=== PATIENT | female | born 1945 | race Caucasian/White ===

== ENCOUNTER 2017-07-24 10:42 | Outpatient (CLI) | payer MEDICARE, BC | END 2017-07-24 10:43 | disposition home or self-care (01) | LOC: BICMAMMO 10:42 | PROVIDERS: ATTEND Family Medicine | DX: Z12.31 Encounter for screening mammogram for malignant neoplasm of breast (principal) | CPT/HCPCS: 77063; 77067 ==

== ENCOUNTER 2018-07-30 12:21 | Outpatient (CLI) | payer MEDICARE, BC ==
--- NOTE | 2018-07-30 12:54 | MMO ---
Bilateral MAMMO Bilat Screen [facility]. CLINICAL HISTORY: Patient is 73 years old and is seen for screening. The patient has no family history of breast cancer. The patient has no personal history of cancer. The patient has a history of left Excisional Biopsy - benign. VIEWS: The views performed were: bilateral craniocaudal with tomosynthesis and bilateral mediolateral oblique with tomosynthesis. FILMS COMPARED: The present examination has been compared to prior imaging studies performed at [facility] on 07/24/2017, and at [facility] on 05/04/2014, 05/13/2015 and 05/22/2016. MAMMOGRAM FINDINGS: There are scattered fibroglandular densities. There are stable benign appearing calcifications seen in both breasts. There are also vascular calcifications. There are no suspicious masses, suspicious calcifications, or new areas of architectural distortion. IMPRESSION: THERE IS NO MAMMOGRAPHIC EVIDENCE OF MALIGNANCY. A ROUTINE FOLLOW-UP MAMMOGRAM IN 1 YEAR IS RECOMMENDED. THE RESULTS OF THIS EXAM WERE SENT TO THE PATIENT. ACR BI-RADS Category 2 - Benign finding MAMMOGRAPHY NOTE: 1. A negative mammogram report should not delay a biopsy if a dominant of clinically suspicious mass is present. 2. Approximately 10% to 15% of breast cancers are not detected by mammography. 3. Adenosis and dense breasts may obscure an underlying neoplasm.
== END 2018-07-30 12:22 | disposition home or self-care (01) ==
LOC: BICMAMMO 12:21
PROVIDERS: ATTEND Family Medicine
DX: Z12.31 Encounter for screening mammogram for malignant neoplasm of breast (principal); Z91.89 Other specified personal risk factors, not elsewhere classified
CPT/HCPCS: 77063; 77067

== ENCOUNTER 2019-08-26 08:14 | Outpatient (CLI) | payer MEDICARE, BC ==
--- NOTE | 2019-08-26 08:42 | MMO ---
Bilateral MAMMO Bilat Screen [facility]. CLINICAL HISTORY: Patient is 74 years old and is seen for screening. The patient has no family history of breast cancer. The patient has no personal history of cancer. The patient has a history of left Excisional Biopsy - benign. VIEWS: The views performed were: bilateral craniocaudal with tomosynthesis and bilateral mediolateral oblique with tomosynthesis. FILMS COMPARED: The present examination has been compared to prior imaging studies performed at [facility] on 07/24/2017 and 07/30/2018, and at [facility] on 05/22/2016. This study has been interpreted with the assistance of computer-aided detection. MAMMOGRAM FINDINGS: There are scattered fibroglandular densities. Benign calcifications are noted bilaterally. There are no suspicious masses, suspicious calcifications, or new areas of architectural distortion. IMPRESSION: THERE IS NO MAMMOGRAPHIC EVIDENCE OF MALIGNANCY. A ROUTINE FOLLOW-UP MAMMOGRAM IN 1 YEAR IS RECOMMENDED. THE RESULTS OF THIS EXAM WERE SENT TO THE PATIENT. ACR BI-RADS Category 2 - Benign finding MAMMOGRAPHY NOTE: 1. A negative mammogram report should not delay a biopsy if a dominant of clinically suspicious mass is present. 2. Approximately 10% to 15% of breast cancers are not detected by mammography. 3. Adenosis and dense breasts may obscure an underlying neoplasm. Reported by: JOHN OLVERA MD Electonically Signed: [id number]
== END 2019-08-26 08:15 | disposition home or self-care (01) ==
LOC: BICMAMMO 08:14
PROVIDERS: ATTEND Internal Medicine
DX: Z12.31 Encounter for screening mammogram for malignant neoplasm of breast (principal); Z91.89 Other specified personal risk factors, not elsewhere classified
CPT/HCPCS: 77063; 77067

== ENCOUNTER 2019-09-10 05:56 | Outpatient (CLI) | payer MEDICARE, BC, OTHER ==
[2019-09-10 12:23] LABS: #Eosinphils 0.2 thou/uL (0.0-0.7); #Lymphocytes 2.2 thou/uL (1.20-3.40); #Monocytes 0.6 thou/uL (0.11-0.59); #Neutrophils 3.7 thou/uL (1.40-6.50); %Basophils 0.5 % (0.0-1.0); %Eosinophils 2.5 % (0.0-10.0); %Lymphocytes 32.5 % (21.0-51.0); %Monocytes 9.2 % (0.0-10.0); %Neutrophils 55.4 % (42.0-75.0); Hemoglobin 17.2 g/dL (12.0-16.0); Mean Corpuscular HGB CONC 30.7 g/dL (32.0-36.0); Mean Corpuscular Volume 94.8 fL (78.0-98.0); Mean Platelet Volume 7.8 fL (7.4-10.4); Platelet Count 266 thou/uL (130-400); RBC Distribution Width 13.1 % (11.5-14.5); Red Blood Cell (RBC) Count 5.93 mill/uL (4.20-5.40); White Blood Cell (WBC) Count 6.7 thou/uL (4.8-10.8)
[2019-09-10 12:28] LABS: INR-International Normal Ratio 0.9; Prothrombin Time 12.2 sec (12.0-14.7)
--- NOTE | 2019-09-10 17:38 | EKG ---
Test Reason : Blood Pressure : / mmHG Vent. Rate : 073 BPM Atrial Rate : 073 BPM P-R Int : 160 ms QRS Dur : 080 ms QT Int : 398 ms P-R-T Axes : 064 -11 059 degrees QTc Int : 438 ms Normal sinus rhythm Anterior infarct (cited on or before Low voltage QRS Abnormal ECG When compared with ECG of 07-MAY-2011 09:51, QRS duration has increased Criteria for Inferior infarct are no longer Present Questionable change in initial forces of Septal leads ST no longer depressed in Anterior leads Confirmed by DOMINICK GOMEZ, SJory ([id number]) on 09/10/2019 5:37:41 PM Referred By: CASIMIRO Confirmed By:DR. Saima TAN MD
[2019-09-10 18:35] LABS: SARS-CoV-2 MS2 Positive; SARS-CoV-2 N Gene Negative; SARS-CoV-2 S Gene Negative; SARS-CoV-2 orf1ab Negative
[2019-09-10 18:44] LABS: Bacteria/HPF 4+ HPF (None Seen); Bilirubin Negative (Negative); Blood, Urine Negative (Negative); Clarity Turbid (Clear); Glucose, Urine (Dipstick) Normal (Negative); Leukocyte 500 Leu/uL (Negative); Nitrite 2+ (Negative); Protein, Urine (Dipstick) 10 mg/dL (Neg-Trace); RBC/HPF 0-3 HPF (0-3); Urobilinogen Normal mg/dL (Less than 2); WBC/HPF Greater than 50 HPF (0-3)
== END 2019-09-10 05:57 | disposition home or self-care (01) ==
LOC: LABBT 05:56
PROVIDERS: ATTEND Orthopaedic Surgery
DX: Z01.818 Encounter for other preprocedural examination (principal); Z11.59 Encounter for screening for other viral diseases; M17.12 Unilateral primary osteoarthritis, left knee
CPT/HCPCS: 80061; 80076; 81001; 82306; 82607; 82728; 83036; 83540; 83550; 84439; 85610; 87077; 87081; 87086; 87186; 93005; U0003; 80053; 84443; 85025; 87635; 93010

== ENCOUNTER 2019-09-14 05:34 | Observation (INO) | payer MEDICARE, BC ==
[2019-09-10 10:18] VITALS: BMI 36.3
--- NOTE | 2019-09-10 10:29 | HP ---
DATE OF SURGERY: 09/14/2019. HISTORY OF PRESENT ILLNESS: The patient is a 74-year-old female with a long history of progressive degenerative arthritis of the left knee unresponsive to conservative treatment including rest, restriction of activities, use of a walker, anti-inflammatory medications, and previous cortisone injection. Pain is now interfering with day-to-day activities including walking, getting dressed, and sleeping. PAST MEDICAL HISTORY: The patient had right total knee replacement in April of 2011 with good results. She does have arthritis in her shoulders and a history of hypertension and episodic atrial fibrillation. She has required aspirin, but no other blood thinner. She has been seen and cleared for surgery by Dr. Kelly's office. CURRENT MEDICATIONS: 1. Lasix. 2. Potassium. 3. Bystolic. 4. Celebrex. 5. Low-dose aspirin. 6. Magnesium. 7. Coenzyme Q. 8. Estrogens. 9. Livalo. 10. Fluticasone. ALLERGIES: SHE IS ALLERGIC TO VICODIN. SHE DID HAVE SOME APPARENT SUTURE REACTION FOLLOWING HER RIGHT TOTAL KNEE REPLACEMENT 8 YEARS AGO WITH ULTIMATE HEALING WITHOUT FURTHER PROBLEMS. THIS MAY HAVE BEEN RELATED TO THE QUILL SUBCUTANEOUS SUTURES. FAMILY HISTORY: Otherwise unremarkable. SOCIAL HISTORY: Otherwise unremarkable. 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 REVIEW OF SYSTEMS: Otherwise unremarkable. PHYSICAL EXAMINATION: GENERAL: Reveals a healthy elderly female. HEENT: Unremarkable. NECK: Supple. CHEST: Clear. HEART: Regular rate and rhythm. ABDOMEN: Soft and nontender. PELVIC: Deferred. RECTAL: Deferred. BREASTS: Deferred. EXTREMITIES: Pertinent findings related to left knee; there is puffiness. There is no definite effusion. There is mild varus deformity. There is global tenderness. Range of motion is 5 to 105 degrees with crepitus. There is no instability. There is left antalgic gait. Neurovascular exam is intact. Distal pulses are trace. There is good capillary refill. There is no pain with range of motion of the left hip. IMAGING STUDIES: X-rays revealed tricompartmental DJD with [id number] collapse medially and progression from previous x-rays. There appears to be a calcific loose body laterally. IMPRESSION: 1. Degenerative arthritis of left knee. 2. Status post right total knee replacement. 3. History of hypertension. 4. History of episodic atrial fibrillation. PLAN: Left total knee replacement. The nature of the surgery, length of recovery, and potential complications such as infection, loss of motion, incomplete relief, thromboembolic phenomena, delayed wound healing, possible transfusion, and need for revision were discussed in detail. She may require longer than usual hospital stay because she lives alone. Job ID: [id number]
[2019-09-14] MEDS ORDERED: Midazolam HCl 2 mg/2 ml Vial ONE ×2 (06:20→06:32)
[2019-09-14] MEDS ORDERED: Fentanyl 100 MCG/2 ML VIAL ONE ×4 (06:20→09:48)
[2019-09-14] MEDS ORDERED: Tranexamic Acid 1,000 MG/10 ML VIAL ONE ×3 (06:21→09:41)
[2019-09-14] MEDS ORDERED: Vancomycin 1.5 GRAM/300 ML BAG 1.5 GM/300 ML BAG ONE (06:21)
[2019-09-14] MEDS ORDERED: Sodium Chloride 0.9% 100 ML ONE (06:21)
[2019-09-14] MEDS ORDERED: Ondansetron PF 4 MG/2 ML Vial ONE ×2 (06:46→10:14)
[2019-09-14] MEDS ORDERED: Bupivacaine/Epinephrine 0.25% 30 ML VIAL ONE (07:55)
[2019-09-14] MEDS ORDERED: Zolpidem Tartrate 5 MG TAB PO PRN ×2 (08:03→11:35)
[2019-09-14] MEDS ORDERED: traMADol HCl 50 MG TAB PO PRN ×3 (08:03→11:35)
[2019-09-14] MEDS ORDERED: Promethazine HCl 25 MG/ML VIAL IM PRN ×2 (08:03→09:38)
[2019-09-14] MEDS ORDERED: Ondansetron PF 4 MG/2 ML Vial IVP PRN (08:03)
[2019-09-14] MEDS ORDERED: Fentanyl 100 MCG/2 ML VIAL SLOW IVP PRN ×2 (08:04→11:35)
[2019-09-14] MEDS ORDERED: Tranexamic Acid 1,000 MG in Sodium Chloride 0.9% 100 ML IVPB SCH ×2 (09:30→11:35)
[2019-09-14] MEDS ORDERED: Ondansetron HCl/PF 4 MG/2 ML Vial IVP PRN (09:38)
[2019-09-14] MEDS ORDERED: Promethazine HCl 25 MG/ML VIAL SLOW IVP PRN ×2 (09:38→11:35)
--- NOTE | 2019-09-14 09:45 | RAD ---
Left knee 2 views HISTORY: Arthritis. Knee replacement. FINDINGS: Metallic prosthesis in place. Good position. No shawnee-hardware lucency. Soft tissue gas and skin iram consistent with recent surgery. IMPRESSION : Left knee prosthesis is in good radiographic position.
--- NOTE | 2019-09-14 10:07 | OP ---
DATE OF PROCEDURE: 09/14/2019 PILLOWCASE TURNER: CONNOR Daniel ANESTHESIA: General plus adductor canal and sciatic nerve blocks. PREOPERATIVE DIAGNOSIS: Degenerative arthritis, left knee. POSTOPERATIVE DIAGNOSIS: Degenerative arthritis, left knee. PROCEDURE PERFORMED: Left total knee replacement with computer-assisted navigation with cemented [place] [employer] components (#4 femoral component, #3 primary tibial baseplate with 16 mm CS plastic insert, A29 all-plastic patella). DESCRIPTION OF PROCEDURE: After satisfactory anesthesia was induced in supine position, sequential compression device was placed on the operative leg throughout the procedure. The left leg was elevated, exsanguinated with an Esmarch bandage , and the tourniquet was inflated to 300 mmHg. A gently-curved medial parapatellar incision was made, carried down to the subcutaneous tissues. Bleeding points were controlled with Bovie cautery. Medial parapatellar arthrotomy was performed. The patella was carried laterally, and portions of the fat pad were excised for exposure. There was marked tricompartmental degenerative arthritis of all compartments with large areas of exposed bone, large osteophytes, and 4 to 5 large calcific loose bodies, which were removed. Meniscal remnants and osteophytes were removed. Using the Sponto pinless navigation system and the appropriate guides , the distal femoral and proximal tibial articular surfaces were excised to accept the trial components. It was felt #4 femoral component, #3 tibial baseplate with 16 mm CS plastic insert gave appropriate size, fit, stability, and correction of the preoperative deformity. The patellar articular surface was excised to accept an all-plastic A29 patellar component. There was good range of motion and good patellar tracking. The trial components were removed. The knee was copiously irrigated with pulsatile lavage, and bony surfaces were thoroughly cleaned and dried. The permanent components were then cemented in a single stage using 1 packet of cement premixed with 1 g of tobramycin powder. Excess cement was removed. There was again good fit and stability of the components. The knee was copiously irrigated. The medial retinaculum and quadriceps mechanism were closed with interrupted #2 Vicryl. Subcutaneous tissues were closed with 0 and 2-0 Vicryl. The skin was infiltrated with 30 mL of 0.25% Marcaine with epinephrine. The skin was closed with a staple gun. Sterile bulky compressive dressing was applied. Then , the tourniquet was deflated after 87 minutes. The foot promptly pinked up. Sequential compression device was applied to her upper leg, and she was awakened and taken to the recovery room in stable condition. There were no apparent intraoperative complications. The estimated blood loss was less than 100 mL. Job ID: [id number] MTDD
[2019-09-14] MEDS ORDERED: PROPOFOL 200 MG/20 ML VIAL ONE (10:14)
[2019-09-14] MEDS ORDERED: Ropivacaine 0.5% HCl/PF (150 MG/30 ML VIAL) ONE (10:14)
[2019-09-14] MEDS ORDERED: Ropivacaine 0.2% HCl/PF (40 MG/20 ML VIAL) ONE (10:14)
[2019-09-14] MEDS ORDERED: Lidocaine 1% PF 5 ML VIAL ONE (10:14)
[2019-09-14] MEDS ORDERED: Ketorolac Tromethamine 30 MG/ML VIAL IVP SCH (12:00)
[2019-09-14] MEDS ORDERED: Acetaminophen 500 MG TAB PO SCH (12:00)
[2019-09-14] MEDS ORDERED: Magnesium Oxide 400 MG TAB PO SCH (12:30)
[2019-09-14] MEDS ORDERED: Estrogen,Ester/Me-Testosterone 0.625 mg/1.25 mg Tablet PO SCH (12:30)
[2019-09-14] MEDS ORDERED: Furosemide 40 MG TAB PO SCH (12:30)
[2019-09-14 12:32] LABS: #Monocytes 0.8 thou/uL (0.11-0.59); #Neutrophils 11.9 thou/uL (1.40-6.50); %Eosinophils 0.2 % (0.0-10.0); %Lymphocytes 7.4 % (21.0-51.0); %Monocytes 5.8 % (0.0-10.0); %Neutrophils 86.6 % (42.0-75.0); Hemoglobin 15.9 g/dL (12.0-16.0); Mean Corpuscular HGB CONC 31.9 g/dL (32.0-36.0); Mean Corpuscular Hemoglobin 30.2 pg (27.0-31.0); Mean Corpuscular Volume 94.8 fL (78.0-98.0); Mean Platelet Volume 7.5 fL (7.4-10.4); Platelet Count 210 thou/uL (130-400); RBC Distribution Width 12.9 % (11.5-14.5); Red Blood Cell (RBC) Count 5.28 mill/uL (4.20-5.40); White Blood Cell (WBC) Count 13.7 thou/uL (4.8-10.8)
[2019-09-14] MEDS ORDERED: Nebivolol HCl 2.5 MG TAB PO SCH (12:45)
[2019-09-14] MEDS ORDERED: Levothyroxine Sodium 25 MCG TAB PO SCH (12:45)
[2019-09-14] MEDS ORDERED: Ubidecarenone 50 MG CAP PO SCH (12:45)
[2019-09-14 12:51] LABS: Anion Gap 16 mmol/L (10-20); BUN (Urea Nitrogen) 14 mg/dL (9.8-20.1); Calc. Creatinine Clearance 89 mL/min (70-130); Calcium 8.5 mg/dL (7.8-10.44); Carbon Dioxide 22 mmol/L (23-31); Chloride 107 mmol/L (98-107); Estimated GFR-MDRD 68; Glucose 118 mg/dL (83-110); Sodium 141 mmol/L (136-145)
[2019-09-14] MEDS: Fentanyl 100 MCG/2 ML VIAL SLOW IVP PRN ×2 (14:23→21:18)
[2019-09-14] MEDS: Ketorolac Tromethamine 30 MG/ML VIAL IVP SCH ×3 (14:23→23:11)
[2019-09-14] MEDS: CEFAZOLIN 2 GM in Premix Bag 1 BAG IVPB SCH ×2 (14:27→21:19)
[2019-09-14] MEDS: Sodium Chloride 0.9% 1,000 ML IV SCH ×2 (14:54→22:36)
--- NOTE | 2019-09-14 16:31 | CON ---
DATE OF CONSULTATION: CHIEF COMPLAINT: Medical management, status post left total knee replacement. HISTORY OF PRESENT ILLNESS: A 74-year-old female with a history of severe arthritis and several orthopedic surgeries including rotator cuff repair, bilateral carpal tunnel release, episodic atrial fibrillation, hypertension, had elective left total knee replacement today. Postoperatively, she is resting well. The patient is not diabetic. No previous history of stroke or DC. She has hypertension and managed with Bystolic. The patient also has a history of atrial fibrillation and follows with Dr. Kelly and takes only aspirin, not on any blood thinner as she has been told that she does not require it. Patient has a history of hypothyroidism and takes thyroxine supplement. REVIEW OF SYSTEMS: 13-point review of systems reviewed with the patient. Patient does not have any recent fever, night sweats, chills or sick exposure. No recent history of chest pain, productive cough. No nausea, vomiting, abdominal pain, constipation, diarrhea, hematuria, dysuria. Rest of the review of systems are negative. PAST MEDICAL HISTORY: 1. Hypertension. 2. Benign paroxysmal atrial fibrillation, not on anticoagulation. 3. Hypothyroidism. 4. Arthritis. SURGICAL HISTORY: Rotator cuff repair, right total knee replacement, bilateral carpal tunnel release. MEDICATIONS: 1. Aspirin 81 mg daily. 2. Coenzyme Q10. 3. Estrogen. 4. Fluticasone. 5. Levothyroxine 25 mcg daily. 6. Bystolic one tablet daily. 7. Lasix 20 mg daily. 8. Magnesium oxide 400 mg daily. 9. Vitamin D3 5000 unit daily. SOCIAL HISTORY: The patient does not smoke or drink alcohol. She lives with family. FAMILY HISTORY: Mother has CHF. Father has arthritis. Both are alive in their 90s. PHYSICAL EXAMINATION: VITAL SIGNS: Temperature 98.6, pulse 74, blood pressure 137/83, saturating 97% on room air. GENERAL: The patient is alert, oriented, not in any acute distress. HEENT: Pupils equal, round, reactive to light. Anicteric. Mucous membranes moist. CARDIOVASCULAR: Regular rate and rhythm without murmurs, rubs, or gallops. LUNGS: Clear. ABDOMEN: Quite benign. EXTREMITIES: She has a cast on her left leg. PSYCHIATRIC: Appropriate mood and affect. LABORATORY DATA: WBC 13.7, hemoglobin 15.9, platelet is 210. Creatinine is 0.82. Rest of the BMP panel in the normal range. IMPRESSION AND PLAN: This is a 74-year-old female with a history of hypertension, atrial fibrillation, had elective left total knee replacement. Postop surgery, she is doing well. 1. Hypertension. Continue with Bystolic. Keep her blood pressure below 160 with hydralazine as needed. 2. Hypothyroidism. Continue with levothyroxine at 25 mcg daily. 3. Rest of the medical management based on the clinical course. I appreciate the consult. Please call me if you have any questions. I will follow this patient closely while she is hospitalized. Job ID: [id number] MTDD
[2019-09-14] MEDS ORDERED: Vancomycin 1.5 GRAM/300 ML BAG 1.5 GM in Premix Bag 1 BAG IVPB SCH (18:00)
[2019-09-14] MEDS: Senokot S 8.6-50 MG TAB PO SCH (20:38)
[2019-09-14] MEDS: Aspirin 81 mg Enteric Coated Tablet PO SCH (20:38)
[2019-09-14] MEDS: Simvastatin 5 MG TAB PO SCH (20:38)
[2019-09-14] MEDS: Ondansetron PF 4 MG/2 ML Vial IVP PRN (23:11)
[2019-09-15] MEDS: Levothyroxine Sodium 25 MCG TAB PO SCH (04:59)
[2019-09-15] MEDS: Ketorolac Tromethamine 30 MG/ML VIAL IVP SCH ×4 (05:00→23:37)
[2019-09-15] MEDS: Ondansetron PF 4 MG/2 ML Vial IVP PRN (05:00)
[2019-09-15 06:01] LABS: #Lymphocytes 1.6 thou/uL (1.20-3.40); #Monocytes 1.3 thou/uL (0.11-0.59); #Neutrophils 7.3 thou/uL (1.40-6.50); %Basophils 0.3 % (0.0-1.0); %Eosinophils 0.1 % (0.0-10.0); %Lymphocytes 15.9 % (21.0-51.0); %Monocytes 12.7 % (0.0-10.0); %Neutrophils 71.1 % (42.0-75.0); Hemoglobin 14.1 g/dL (12.0-16.0); Mean Corpuscular HGB CONC 31.2 g/dL (32.0-36.0); Mean Corpuscular Hemoglobin 29.7 pg (27.0-31.0); Mean Corpuscular Volume 95.4 fL (78.0-98.0); Mean Platelet Volume 7.3 fL (7.4-10.4); Platelet Count 207 thou/uL (130-400); Red Blood Cell (RBC) Count 4.74 mill/uL (4.20-5.40); White Blood Cell (WBC) Count 10.2 thou/uL (4.8-10.8)
[2019-09-15] MEDS: Sodium Chloride 0.9% 1,000 ML IV SCH ×2 (06:05→18:18)
--- NOTE | 2019-09-15 08:16 | PDOC.HOSPP ---
- Subjective Encounter Date: 09/15/19 Subjective: The patient is feeling better today. Her pain is controlled. She is participating with PT. - Objective Vital Signs & Weight: Vital Signs (12 hours) Temp Pulse Resp BP Pulse Ox 09/15/19 07:28 98.4 F 76 14 118/70 94 L 09/15/19 03:41 99.6 F 86 16 121/70 93 L 09/14/19 23:35 99.1 F 88 16 129/67 94 L Weight Weight 212 lb I&O: 09/14/19 09/15/19 09/16/19 06:59 06:59 06:59 Intake Total 2200 Output Total 1100 Balance 1100 Result Diagrams: 09/15/19 05:42 09/14/19 12:06 Hospitalist ROS - Medication Medications: Active Medications Generic Name Dose Route Start Last Admin Trade Name Freq PRN Reason Stop Dose Admin Aspirin 81 mg 09/14/19 21:00 09/14/19 20:38 Ecotrin PO 81 mg BID SHELLI Administration Fentanyl 50 mcg 09/14/19 11:35 09/14/19 21:18 Sublimaze SLOW IVP 50 mcg Q30MIN PRN Administration Moderate Pain (4-6) Sodium Chloride 1,000 mls @ 100 mls/hr 09/14/19 11:35 09/15/19 06:05 Normal Saline 0.9% IV Not Given .Q10H SHELLI Ketorolac Tromethamine 15 mg 09/14/19 12:00 09/15/19 05:00 Toradol IVP 09/16/19 12:01 15 mg Q6HR SHELLI Administration Levofloxacin 500 mg 09/15/19 06:00 09/15/19 05:00 Levaquin PO 500 mg 0600 SHELLI Administration Levothyroxine Sodium 25 mcg 09/15/19 06:00 09/15/19 04:59 Synthroid PO 25 mcg 0600 SHELLI Administration Ondansetron HCl 4 mg 09/14/19 11:35 09/15/19 05:00 Zofran IVP 4 mg Q6H PRN Administration Nausea/Vomiting Senna/Docusate Sodium 2 tab 09/14/19 21:00 09/14/19 20:38 Senokot S PO 2 tab BID SHELLI Administration Simvastatin 5 mg 09/14/19 21:00 09/14/19 20:38 Zocor PO 5 mg HS SHELLI Administration - Exam General Appearance: NAD, awake alert ENT: normocephalic atraumatic Neck: supple Respiratory: normal chest expansion, no tachypnea Extremities: no cyanosis, no clubbing Neurological: cranial nerve grossly intact Hosp A/P (1) Afib Code(s): I48.91 - UNSPECIFIED ATRIAL FIBRILLATION Status: Acute (2) HTN (hypertension) Code(s): I10 - ESSENTIAL (PRIMARY) HYPERTENSION Status: Acute (3) Status post total knee replacement Code(s): Z96.659 - PRESENCE OF UNSPECIFIED ARTIFICIAL KNEE JOINT Status: Acute - Plan The patient is clinically stable. Her rate is controlled on Bystolic. Blood pressure within normal limits. Her pain is controlled. She is participating well with physical therapy. Add Protonix for peptic ulcer disease prophylaxis and Lovenox for DVT prophylaxis.
[2019-09-15] MEDS: Senokot S 8.6-50 MG TAB PO SCH ×2 (08:29→20:31)
[2019-09-15] MEDS: Aspirin 81 mg Enteric Coated Tablet PO SCH ×2 (08:29→20:31)
[2019-09-15] MEDS: Ubidecarenone 50 MG CAP PO SCH (08:29)
[2019-09-15] MEDS: Multivitamin W/ Minerals 1 TAB PO SCH (08:29)
[2019-09-15] MEDS: Furosemide 40 MG TAB PO SCH (08:29)
[2019-09-15] MEDS: Potassium Chloride 8 MEQ TAB PO SCH (08:29)
[2019-09-15] MEDS: Enoxaparin Sodium 40 MG/0.4 ML SYRINGE SC SCH (08:30)
[2019-09-15] MEDS: Estrogen,Ester/Me-Testosterone 0.625 mg/1.25 mg Tablet PO SCH (08:30)
--- NOTE | 2019-09-15 08:32 | PRG ---
DATE OF SERVICE: 09/15/2019 SUBJECTIVE: Jacquelin is a 74-year-old female, postop day 1 from a left total knee arthroplasty. She is doing relatively well. She has very little complaints in the way of pain and she did well last night. OBJECTIVE: VITAL SIGNS: Temperature 98.4, pulse 76, respiratory rate 14, blood pressure is 118/70. GENERAL: She is alert and oriented to person, place, time, and situation. Responsive and appropriate with examiner. EXTREMITIES: Her incision is clean. No strikethrough. No erythema. No malrotation in joint. She is neurovascularly intact in the left lower extremity. LABORATORY DATA: Hemoglobin and hematocrit of 14 and 45. IMPRESSION: A 74-year-old female, postop day 1 from left total knee arthroplasty, doing well. PLAN: Continue current care. Initiate physical therapy. Probable discharge home tomorrow. Job ID: [id number]
[2019-09-15] MEDS ORDERED: Estrogen,Ester/Me-Testosterone 0.625 mg/1.25 mg Tablet PO SCH (09:00)
[2019-09-15] MEDS: Ropivacaine HCl/PF 250 ML in Premix Bag 1 BAG NERVE BLCK SCH (10:01)
[2019-09-15] MEDS: Nebivolol HCl 2.5 MG TAB PO SCH (10:35)
[2019-09-15] MEDS: Magnesium Oxide 400 MG TAB PO SCH (10:35)
[2019-09-15] MEDS: Simvastatin 5 MG TAB PO SCH (20:31)
[2019-09-15] MEDS: Acetaminophen 325 MG TAB PO PRN (20:31)
[2019-09-15] MEDS: Fentanyl 100 MCG/2 ML VIAL SLOW IVP PRN (22:09)
[2019-09-16 05:36] LABS: #Eosinphils 0.1 thou/uL (0.0-0.7); #Lymphocytes 1.9 thou/uL (1.20-3.40); #Monocytes 1.4 thou/uL (0.11-0.59); #Neutrophils 7.4 thou/uL (1.40-6.50); %Basophils 0.1 % (0.0-1.0); %Lymphocytes 17.7 % (21.0-51.0); %Monocytes 13.1 % (0.0-10.0); %Neutrophils 68.2 % (42.0-75.0); Hemoglobin 13.1 g/dL (12.0-16.0); Mean Corpuscular HGB CONC 31.2 g/dL (32.0-36.0); Mean Corpuscular Volume 96.2 fL (78.0-98.0); Mean Platelet Volume 8.1 fL (7.4-10.4); Platelet Count 185 thou/uL (130-400); RBC Distribution Width 12.9 % (11.5-14.5); Red Blood Cell (RBC) Count 4.36 mill/uL (4.20-5.40); White Blood Cell (WBC) Count 10.8 thou/uL (4.8-10.8)
[2019-09-16 05:54] LABS: Anion Gap 12 mmol/L (10-20); BUN (Urea Nitrogen) 10 mg/dL (9.8-20.1); Calc. Creatinine Clearance 104 mL/min (70-130); Calcium 8.3 mg/dL (7.8-10.44); Carbon Dioxide 25 mmol/L (23-31); Chloride 103 mmol/L (98-107); Estimated GFR-MDRD 81; Glucose 98 mg/dL (83-110); Potassium 3.4 mmol/L (3.5-5.1); Sodium 137 mmol/L (136-145)
[2019-09-16] MEDS: Ketorolac Tromethamine 30 MG/ML VIAL IVP SCH ×3 (06:11→11:52)
[2019-09-16] MEDS: Levothyroxine Sodium 25 MCG TAB PO SCH (06:12)
[2019-09-16] MEDS: Sodium Chloride 0.9% 1,000 ML IV SCH ×2 (06:54→13:05)
[2019-09-16] MEDS: Nebivolol HCl 2.5 MG TAB PO SCH (10:53)
[2019-09-16] MEDS: Enoxaparin Sodium 40 MG/0.4 ML SYRINGE SC SCH (10:53)
[2019-09-16] MEDS: Potassium Chloride 8 MEQ TAB PO SCH (10:53)
[2019-09-16] MEDS: Senokot S 8.6-50 MG TAB PO SCH ×2 (10:54→19:54)
[2019-09-16] MEDS: Ubidecarenone 50 MG CAP PO SCH (10:54)
[2019-09-16] MEDS: Magnesium Oxide 400 MG TAB PO SCH (10:54)
[2019-09-16] MEDS: Aspirin 81 mg Enteric Coated Tablet PO SCH ×2 (10:55→19:53)
[2019-09-16] MEDS: Estrogen,Ester/Me-Testosterone 0.625 mg/1.25 mg Tablet PO SCH (10:55)
[2019-09-16] MEDS: Furosemide 40 MG TAB PO SCH (10:55)
[2019-09-16] MEDS: Multivitamin W/ Minerals 1 TAB PO SCH (10:55)
[2019-09-16] MEDS: Ropivacaine HCl/PF 250 ML in Premix Bag 1 BAG NERVE BLCK SCH (11:55)
[2019-09-16] MEDS ORDERED: Potassium Chloride 20 MEQ TAB PO SCH (13:00)
[2019-09-16] MEDS: traMADol HCl 50 MG TAB PO PRN ×2 (14:33→20:30)
[2019-09-16] MEDS: Acetaminophen 325 MG TAB PO PRN ×2 (14:33→20:33)
--- NOTE | 2019-09-16 15:10 | PDOC.HOSPP ---
- Subjective Encounter Date: 09/16/19 Subjective: The patient has no new complaints today. She tolerated her diet and worked with physical therapy in the morning. - Objective Vital Signs & Weight: Vital Signs (12 hours) Temp Pulse Resp BP Pulse Ox 09/16/19 11:45 98.9 F 88 16 117/75 96 09/16/19 07:49 98.6 F 77 16 116/72 93 L 09/16/19 03:42 98.6 F 82 16 128/77 94 L Weight Admit Weight 212 lb Weight 212 lb I&O: 09/15/19 09/16/19 09/17/19 06:59 06:59 06:59 Intake Total 2200 1298 Output Total 1100 Balance 1100 1298 Result Diagrams: 09/16/19 05:14 09/16/19 05:14 Hospitalist ROS - Medication Medications: Active Medications Generic Name Dose Route Start Last Admin Trade Name Freq PRN Reason Stop Dose Admin Acetaminophen 650 mg 09/14/19 11:35 09/16/19 14:33 Tylenol PO 650 mg Q4H PRN Administration Headache/Fever or Pain (1-3) Aspirin 81 mg 09/14/19 21:00 09/16/19 10:55 Ecotrin PO 81 mg BID SHELLI Administration Cholecalciferol 5,000 units 09/15/19 09:00 09/16/19 10:53 Vitamin D3 PO 5,000 units DAILY SHELLI Administration Coenzyme Q10 100 mg 09/15/19 09:00 09/16/19 10:54 Coenzyme Q10 PO 100 mg DAILY SHELLI Administration Enoxaparin Sodium 40 mg 09/15/19 09:00 09/16/19 10:53 Lovenox SC 40 mg 0900 SHELLI Administration Fentanyl 50 mcg 09/14/19 11:35 09/15/19 22:09 Sublimaze SLOW IVP 50 mcg Q30MIN PRN Administration Moderate Pain (4-6) Furosemide 40 mg 09/15/19 09:00 09/16/19 10:55 Lasix PO 40 mg DAILY SHELLI Administration Ropivacaine 250 ml/ Device 250 mls @ 10 mls/hr 09/14/19 08:03 09/16/19 11:55 NERVE BLCK 09/17/19 08:02 250 mls INF SHELLI Administration Sodium Chloride 1,000 mls @ 100 mls/hr 09/14/19 11:35 09/16/19 13:05 Normal Saline 0.9% IV Not Given .Q10H SHELLI Iron/Minerals/Multivitamins 1 tab 09/15/19 09:00 09/16/19 10:55 Theragran M PO 1 tab DAILY SHELLI Administration Levofloxacin 500 mg 09/15/19 06:00 09/16/19 06:12 Levaquin PO 500 mg 0600 SHELLI Administration Levothyroxine Sodium 25 mcg 09/15/19 06:00 09/16/19 06:12 Synthroid PO 25 mcg 0600 SHELLI Administration Magnesium Oxide 400 mg 09/15/19 09:00 09/16/19 10:54 Magnesium Oxide PO 400 mg DAILY SHELLI Administration Nebivolol 2.5 mg 09/15/19 09:00 09/16/19 10:53 Bystolic PO 2.5 mg DAILY SHELLI Administration Ondansetron HCl 4 mg 09/14/19 11:35 09/15/19 05:00 Zofran IVP 4 mg Q6H PRN Administration Nausea/Vomiting Pantoprazole Sodium 40 mg 09/15/19 09:00 09/16/19 10:54 Protonix PO 40 mg DAILY SHELLI Administration Estrogen,Callie/Me- 1 each 09/15/19 09:00 09/16/19 10:55 Testosterone 0.625 PO 1 each Mg/1.25 Mg Tablet DAILY SHELLI Administration Potassium Chloride 8 meq 09/15/19 08:00 09/16/19 10:53 Slow-K 8 Meq PO 8 meq QAM-WM SHELLI Administration Senna/Docusate Sodium 2 tab 09/14/19 21:00 09/16/19 10:54 Senokot S PO 2 tab BID SHELLI Administration Simvastatin 5 mg 09/14/19 21:00 09/15/19 20:31 Zocor PO 5 mg HS SHELLI Administration Tramadol HCl 100 mg 09/14/19 11:35 09/16/19 14:33 Ultram PO 100 mg Q6H PRN Administration Moderate to Severe Pain (6-10) - Exam General Appearance: awake alert ENT: normocephalic atraumatic Neck: supple Respiratory: normal chest expansion, no tachypnea Extremities: no cyanosis, no clubbing Neurological: cranial nerve grossly intact, no focal deficits Hosp A/P (1) Afib Code(s): I48.91 - UNSPECIFIED ATRIAL FIBRILLATION Status: Acute (2) HTN (hypertension) Code(s): I10 - ESSENTIAL (PRIMARY) HYPERTENSION Status: Acute (3) Status post total knee replacement Code(s): Z96.659 - PRESENCE OF UNSPECIFIED ARTIFICIAL KNEE JOINT Status: Acute - Plan The patient is clinically stable. Her rate is controlled on Bystolic. Blood pressure within normal limits. Her pain is controlled. She is participating well with physical therapy. On Protonix for peptic ulcer disease prophylaxis and Lovenox for DVT prophylaxis. Potassium is 3.4 today. Replace with 40 mEq of oral potassium chloride.
--- NOTE | 2019-09-16 16:17 | PRG ---
DATE OF SERVICE: 09/16/2019 SUBJECTIVE: Jacquelin is a 74-year-old female, postop day 2 left total knee arthroplasty. She is doing relatively well. She has improved in terms of her function and ambulatory status from yesterday, but she developed some strike- through bleeding at the superior aspect of her incision. OBJECTIVE: VITAL SIGNS: Temperature 99, pulse 88, respiratory rate 16 and nonlabored, and blood pressure 117/75. GENERAL: She is alert and oriented to person, place, time and situation, responsive and appropriate with examiner, interactive and appropriate. EXTREMITIES: Visual inspection of left lower extremity demonstrates her to have some fresh strike through at the superior aspect of her arthroplasty incision, appears bright red. There is scant drainage, but it has saturated at the top of her superficial dressing. She is neurovascularly intact in the left lower extremity. Full digital excursion observed. LABORATORY DATA: Hemoglobin and hematocrit of 13.1 and 42. IMPRESSION: 1. This is a 74-year-old female, postop day 2 left total knee arthroplasty, doing well. 2. Strike-through, superior aspect of the incision. PLAN: We placed a compression dressing over the incision to hopefully slow down the flow of strike-through. We will recheck her tomorrow. Patient being monitored for post operative bleeding and pain management Job ID: [id number] [facility]
[2019-09-16] MEDS: Simvastatin 5 MG TAB PO SCH (19:53)
[2019-09-17] MEDS: Sodium Chloride 0.9% 1,000 ML IV SCH ×2 (01:27→10:22)
[2019-09-17] MEDS: Acetaminophen 325 MG TAB PO PRN ×2 (03:35→10:19)
[2019-09-17] MEDS: traMADol HCl 50 MG TAB PO PRN ×2 (03:35→10:19)
[2019-09-17] MEDS: diphenhydrAMINE 25 MG CAP PO PRN ×2 (03:37→10:19)
[2019-09-17] MEDS: Levothyroxine Sodium 25 MCG TAB PO SCH (06:00)
[2019-09-17 08:25] VITALS: BP 100/65; TEMP 99
[2019-09-17] MEDS: Enoxaparin Sodium 40 MG/0.4 ML SYRINGE SC SCH (10:20)
[2019-09-17] MEDS: Potassium Chloride 8 MEQ TAB PO SCH (10:20)
[2019-09-17] MEDS: Multivitamin W/ Minerals 1 TAB PO SCH (10:20)
[2019-09-17] MEDS: Ubidecarenone 50 MG CAP PO SCH (10:21)
[2019-09-17] MEDS: Furosemide 40 MG TAB PO SCH (10:21)
[2019-09-17] MEDS: Aspirin 81 mg Enteric Coated Tablet PO SCH (10:21)
[2019-09-17] MEDS: Magnesium Oxide 400 MG TAB PO SCH (10:21)
[2019-09-17] MEDS: Senokot S 8.6-50 MG TAB PO SCH (10:21)
[2019-09-17] MEDS: Estrogen,Ester/Me-Testosterone 0.625 mg/1.25 mg Tablet PO SCH (10:22)
[2019-09-17] MEDS: Nebivolol HCl 2.5 MG TAB PO SCH (10:22)
--- NOTE | 2019-09-18 13:10 | DIS ---
DATE OF ADMISSION: 09/16/2019 DATE OF DISCHARGE: 09/17/2019 This is Osei Beltran PA-C dictating a report for Gamal Stephen MD. PREOPERATIVE DIAGNOSES: Left knee osteoarthritis/degenerative joint disease. POSTOPERATIVE DIAGNOSES: Left knee osteoarthritis/degenerative joint disease. PROCEDURES PERFORMED: The patient underwent left total knee replacement. HOSPITAL STAY: Unremarkable. She was admitted to [address], where she worked with staff, Physical Therapy, Occupational Therapy, and progressed quite well. By postop day 1, she was ready to go home. DISCHARGE CONDITION: Good/stable. DISPOSITION: Home with family. FOLLOWUP: Follow up would be in 2 to 4 weeks or sooner if there are problems and/or concerns. DISCHARGE MEDICATIONS: Given with usage instructions. Job ID: [id number]
== END 2019-09-17 11:58 | disposition home or self-care (01) ==
LOC: SDC 05:34 → SJJU 10:36 → SDC 09-16 18:30 → SJJU 09-16 18:31
PROVIDERS: ADMIT Orthopaedic Surgery; ATTEND Orthopaedic Surgery
PROC: 0SRD0J9 Replacement of Left Knee Joint with Synthetic Substitute, Cemented, Open Approach (ICD-10-PCS; principal; 2019-09-14)
PROC: 8E0YXBZ Computer Assisted Procedure of Lower Extremity (ICD-10-PCS; 2019-09-14)
PROC: 3E0T3BZ Introduction of Anesthetic Agent into Peripheral Nerves and Plexi, Percutaneous Approach (ICD-10-PCS; 2019-09-14)
PROC: 3E0T3BZ Introduction of Anesthetic Agent into Peripheral Nerves and Plexi, Percutaneous Approach (ICD-10-PCS; 2019-09-14)
DX: M17.12 Unilateral primary osteoarthritis, left knee (principal); G89.18 Other acute postprocedural pain; L76.22 Postprocedural hemorrhage of skin and subcutaneous tissue following other procedure; I10 Essential (primary) hypertension; E78.5 Hyperlipidemia, unspecified; I48.0 Paroxysmal atrial fibrillation; E03.9 Hypothyroidism, unspecified; M19.011 Primary osteoarthritis, right shoulder; M19.012 Primary osteoarthritis, left shoulder; E66.9 Obesity, unspecified; Z68.36 Body mass index [BMI] 36.0-36.9, adult; Z79.82 Long term (current) use of aspirin; Z79.899 Other long term (current) drug therapy; Z88.0 Allergy status to penicillin; Z88.5 Allergy status to narcotic agent; Z96.651 Presence of right artificial knee joint
CPT/HCPCS: 20985; 27447; 64445; 64448; 73560; 80048 ×2; 85025 ×3; 96372 ×2; 96374; 97110 ×2; 97116 ×3; 97139 ×5; 97530 ×2; C1713; C1776; G0378 ×2; 36415; J0690; J1650; J1885; J2001; J2250; J2405; J2704; J2795; J3010; J3370; J3490; Q0163

== ENCOUNTER 2020-08-30 08:51 | Outpatient (CLI) | payer MEDICARE, BC | END 2020-08-30 08:52 | disposition home or self-care (01) | LOC: BICMAMMO 08:51 | PROVIDERS: ATTEND Internal Medicine | DX: Z12.31 Encounter for screening mammogram for malignant neoplasm of breast (principal) | CPT/HCPCS: 77063; 77067 ==

== ENCOUNTER 2021-09-04 08:50 | Outpatient (CLI) | payer MEDICARE, BC | END 2021-09-04 08:51 | disposition home or self-care (01) | LOC: BICMAMMO 08:50 | PROVIDERS: ATTEND Internal Medicine | DX: Z12.31 Encounter for screening mammogram for malignant neoplasm of breast (principal); Z91.89 Other specified personal risk factors, not elsewhere classified | CPT/HCPCS: 77063; 77067 ==

== ENCOUNTER 2022-10-10 09:46 | Outpatient (CLI) | payer MEDICARE, BC | END 2022-10-10 09:47 | disposition home or self-care (01) | LOC: BICMAMMO 09:46 | PROVIDERS: ATTEND Internal Medicine | DX: Z12.31 Encounter for screening mammogram for malignant neoplasm of breast (principal) | CPT/HCPCS: 77063; 77067 ==

== ENCOUNTER 2023-10-14 12:17 | Outpatient (CLI) | payer MEDICARE | END 2023-10-14 12:18 | disposition home or self-care (01) | LOC: BICMAMMO 12:17 | PROVIDERS: ATTEND Internal Medicine | DX: Z12.31 Encounter for screening mammogram for malignant neoplasm of breast (principal); Z91.89 Other specified personal risk factors, not elsewhere classified | CPT/HCPCS: 77063; 77067 ==